=== PATIENT | female | born 1985 | race Caucasian/White ===

== ENCOUNTER 2021-11-19 14:10 | Emergency (ER) | payer BC ==
[2021-11-19] MEDS ORDERED: Bacitracin/Neomycin/Polymyxin B Oint 0.9 GM U/D Packet ONE (14:28)
[2021-11-19 14:59] LABS: ANION GAP 9.8 meq/L (7-15); CHLORIDE,CL 106 mmol/L (98-107); ESTIMATED GFR > 60 mL/min; SODIUM,NA 142 mmol/L (136-145)
[2021-11-19] MEDS ORDERED: Sodium Chloride 0.9% 1,000 ML IV ONE (15:05)
[2021-11-19] MEDS ORDERED: Acetaminophen 500 MG Tab PO ONE (15:08)
== END 2021-11-19 16:40 | disposition home or self-care (01) ==
LOC: LL.ED 14:18
DX: S06.0X1A Concussion with loss of consciousness of 30 minutes or less, initial encounter (principal); S00.01XA Abrasion of scalp, initial encounter; Z88.1 Allergy status to other antibiotic agents; V80.010A Animal-rider injured by fall from or being thrown from horse in noncollision accident, initial encounter; Y93.52 Activity, horseback riding
CPT/HCPCS: 36415; 70450; 72125; 80053; 81025; 85025; 99284-25; J7030